=== PATIENT | male | born 1940 | race Caucasian/White ===

== ENCOUNTER → 2017-08-30 | Outpatient (CLI) | payer MEDICARE ==
[~2017-08-30] MED LIST: ALPR0.254 PO; ASPI-621 PO; DOCU-131 PO; FURO20TA3 PO; HYDR-3240 PO; LANS15CA5 PO; LANS15TA6 PO; LISI-170 PO; METO-95 PO; METO25TA35 PO; PANT20TA3 PO; POTA10TA11 PO; RANI150T4 PO; SIMV40TA3 PO; WARF5TAB7 PO
== END | disposition home or self-care (01) ==
LOC: CFH 08:36
PROVIDERS: ATTEND Internal Medicine Cardiovascular Disease
DX: I08.3 Combined rheumatic disorders of mitral, aortic and tricuspid valves (principal); I10 Essential (primary) hypertension; F17.290 Nicotine dependence, other tobacco product, uncomplicated; Z95.2 Presence of prosthetic heart valve
CPT/HCPCS: 93306

== ENCOUNTER → 2018-12-12 | Outpatient (CLI) | payer MEDICARE ==
[~2018-12-12] MED LIST changes: -ASPI-621 PO; +ASPI81TA45 PO; +WARF-36 PO; -WARF5TAB7 PO
== END | disposition home or self-care (01) ==
LOC: CVU 09:42
PROVIDERS: ATTEND Internal Medicine Cardiovascular Disease
DX: I35.0 Nonrheumatic aortic (valve) stenosis (principal); I65.23 Occlusion and stenosis of bilateral carotid arteries; I35.9 Nonrheumatic aortic valve disorder, unspecified; I70.0 Atherosclerosis of aorta; I11.9 Hypertensive heart disease without heart failure; I73.9 Peripheral vascular disease, unspecified; E78.5 Hyperlipidemia, unspecified; Z85.46 Personal history of malignant neoplasm of prostate; Z87.891 Personal history of nicotine dependence
CPT/HCPCS: 0399T; 93306; 93880

== ENCOUNTER 2021-05-01 07:33 | Outpatient (CLI) | payer MEDICARE ==
[~2021-05-01 07:33] MED LIST changes: +HYDR-2214 PO; -HYDR-3240 PO; -PANT20TA3 PO; +PANT20TA4 PO; +SIMV40TA20 PO; -SIMV40TA3 PO
== END 2021-05-01 23:59 | disposition home or self-care (01) ==
LOC: CVU 07:33
PROVIDERS: ATTEND Internal Medicine Cardiovascular Disease
DX: I65.23 Occlusion and stenosis of bilateral carotid arteries (principal); I35.8 Other nonrheumatic aortic valve disorders; I67.9 Cerebrovascular disease, unspecified; I42.9 Cardiomyopathy, unspecified; E78.5 Hyperlipidemia, unspecified; I11.9 Hypertensive heart disease without heart failure; Z72.0 Tobacco use
CPT/HCPCS: 93306; 93880